=== PATIENT | female | born 1965 | race Caucasian/White ===

== ENCOUNTER 2017-04-28 13:41 | Emergency (ER) | payer OTHER ==
[~2017-04-28] VITALS: Ht 165.1 cm; Wt 102.1 kg
[2017-04-28] MEDS ORDERED: ROBAXIN-750750 MG PO (13:58)
[2017-04-28] MEDS ORDERED: KETOROLAC TROME10 MG PO (13:58)
== END 2017-04-28 14:29 | disposition home or self-care (01) ==
LOC: ED 13:41
DX: M25.562 Pain in left knee (principal); M54.5 Low back pain; M25.521 Pain in right elbow; W01.0XXA Fall on same level from slipping, tripping and stumbling without subsequent striking against object, initial encounter; Y99.0 Civilian activity done for income or pay
CPT/HCPCS: 99283